=== PATIENT | male | born 1980 | race Two or more races ===

== ENCOUNTER 2019-05-31 13:37 | Outpatient (CLI) | payer BC ==
[~2019-05-31] VITALS: Ht 175.3 cm; Wt 82.1 kg
[2019-06-01 08:17] VITALS: BP 92/59
[2019-06-01] MEDS ORDERED: no medication (08:17)
--- NOTE | 2019-06-01 19:45 | Progress Note ---
DATE: 05/31/2019 SUBJECTIVE: No events. No abdominal pain. Feeling better. PHYSICAL EXAMINATION: VITAL SIGNS: Temperature 97.9, blood pressure 92/59, pulse 73, and respirations 20. HEENT: Normocephalic and atraumatic. Mild scleral icterus. NECK: Supple. No evidence of obvious lymphadenopathy. CARDIOVASCULAR: Regular rate and rhythm. Plus S1 and S2. No obvious murmur. LUNGS: Clear to auscultation bilaterally. ABDOMEN: Positive bowel sounds. Soft, nontender. No rebound. No guarding. No peritoneal sign. EXTREMITIES: No cyanosis. No clubbing. No edema. ASSESSMENT AND PLAN: The patient is a 38-year-old male who had an ERCP x2 at [facility] with a stent currently in place. His bilirubin is dropping from 14 to 10. 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 Now, the patient need an ERCP and stent removal. We will plan to authorization and schedule him at [facility]. Carlos Pulido M.D. DR: SHANE JOB#: [id number] CC:
== END 2019-05-31 15:37 | disposition home or self-care (01) ==
LOC: PAN 13:37
DX: Z01.818 Encounter for other preprocedural examination (principal)
CPT/HCPCS: 99212